=== PATIENT | male | born 1985 | race Caucasian/White ===

== ENCOUNTER 2023-10-06 01:31 | Emergency (ER) | payer SELFPAY ==
[~2023-10-06] VITALS: Ht 172.7 cm; Wt 82.0 kg
[2023-10-06 01:44] VITALS: BP 148/79; PULSE 80; RESP 16; TEMP 98.6; O2SAT 100
[2023-10-06] MEDS ORDERED: DEXAMETHASONE 2MG TABLET PO NR (05:45)
[2023-10-06] MEDS ORDERED: LIDOCAINE HCL 1% 20ML VIAL (Pyxis) INJ INFIL NR (05:45)
[2023-10-06] MEDS ORDERED: FAMOTIDINE 20MG TABLET PO NR (05:45)
[2023-10-06] MEDS ORDERED: CEFTRIAXONE SODIUM 500MG VIAL IM ONE (05:45)
[2023-10-06] MEDS ORDERED: DOXYCYCLINE HYCLATE 100MG CAPSULE PO ONE (05:45)
[2023-10-06] MEDS ORDERED: DIPHENHYDRAMINE 25MG CAPSULE PO NR (05:45)
[2023-10-06 06:05] LABS: CLARITY URINE CLEAR (CLEAR); COLOR URINE DARK YELLOW (YELLOW); GLUCOSE URINE NEGATIVE (NEGATIVE); KETONES URINE TRACE (NEGATIVE); LEUKOCYTE ESTERASE URINE NEGATIVE (NEGATIVE); NITRITE URINE NEGATIVE (NEGATIVE); OCCULT BLOOD URINE NEGATIVE (NEGATIVE); PROTEIN URINE TRACE (NEGATIVE); SPECIFIC GRAVITY URINE 1.039 (1.005-1.030)
[2023-10-06 06:45] LABS: BACTERIA URINE NONE SEEN; RBC URINE 0-2 /hpf (0-2); SQUAMOUS EPITHELIAL CELL URINE FEW /lpf (RARE/1+); WBC URINE 0-2 /hpf (0-2)
[2023-10-06] MEDS ORDERED: DOXY100C5 MT (07:23)
[2023-10-09 04:07] LABS: CHLAMYDIA TRACHOMATIS NAA Negative (Negative); NEISSERIA GONORRHOEAE NAA Negative (Negative)
== END 2023-10-06 08:15 | disposition home or self-care (01) ==
LOC: ER 01:31
DX: R21 Rash and other nonspecific skin eruption (principal); Z88.0 Allergy status to penicillin
CPT/HCPCS: 87491; 87591; 81003; 86592; 96372; 99284; J8540; Q0163; J0696; J3490; Z7610